=== PATIENT | female | born 1960 | race Caucasian/White ===

== ENCOUNTER 2016-03-28 09:34 | Observation (INO) | payer OTHER ==
[~2016-03-28] VITALS: Ht 165.1 cm; Wt 77.1 kg
[~2016-03-28 09:34] MED LIST: ALDACTONE50 MG PO; AMOXICILLIN500 M1 PO; ASPIRIN CHILDRE81 MG PO; ASPIRIN EC325 MG PO; ATORVASTATIN CA80 MG PO; AZOR 5 MG-40 MG1 TAB PO; HEPARIN 2525000 UNI1 IV; LOPRESSOR50 MG PO; METOPROLOL SUCC50 M1 PO; NORVASC 5MG TAB5 MG PO; PLAVIX 75MG TAB75 MG PO; PYRIDIUM200 MG PO; VICODIN5-300 PO
--- NOTE | 2016-03-28 09:57 | ED NEURO DEFICIT/STROKE ---
History of Present Illness General Chief Complaint: General Adult Stated Complaint: BLURRY VISION\\LUA Source: patient, old records Exam Limitations: ANXIETY Vital Signs & Intake/Output Vital Signs & Intake/Output Vital Signs Date Time Temp Pulse Resp B/P Pulse O2 O2 Flow FiO2 Ox Delivery Rate 03/28 1644 66 110/64 03/28 1503 98.2 66 16 110/64 98 Room Air 03/28 1220 64 16 135/73 97 03/28 1024 68 20 146/74 99 Nasal 2.0L Cannula 03/28 0944 99 Nasal 2.0L Cannula 03/28 0943 82 162/82 03/28 0936 98.3 80 18 159/78 99 Allergies Coded Allergies: iodine (Severe, ANAPHYLAXIS 03/28/16) shellfish derived (Intermediate, ? D/T IODINE ALLERGY 03/28/16) Uncoded Allergies: OPIATES (Severe, SEVERE ABD PAIN 03/28/16) Reconcile Medications AMLODIPINE BES/OLMESARTAN MED (Sahil 5-40 MG Tablet) 1 TAB TAB 1 TAB PO DAILY HEART (Reported) Aspirin (Children's Aspirin) 81 MG CTB 1 TAB PO DAILY HEART HEALTH (Reported) Metoprolol Succinate (Metoprolol Succinate XL) [address] 1 TAB PO DAILY HEART (Reported) Rosuvastatin Calcium (Crestor) 10 MG TABLET 1 TAB PO DAILY CHOLESTEROL ( Reported) Triage Note: PATIENT WAS WORKING. NOTED ISSUES WITH FORMING WORDS. CONTACTED PMD AND TOLD TO TAKE BP WHICH WAS HIGH. BROUGHT TO ED Triage Nurses Notes Reviewed? yes HPI: Patient presents for evaluation of blurred vision and trouble concentrating that began abruptly at work at about 6 AM this morning. 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 She contacted her education sales consultant Dr. Nino I was asked to be evaluated in the emergency department. Patient states that she did have a prior episode secondary to a TIA (patient was somewhat unclear on exactly what her diagnosis was at that time). In addition she states she feels a slight ache over the right methodist that began at the same time as her other symptoms. She denies any associated fever or cold symptoms or paresthesias. She states she is experiencing mild heart palpitations. She states "I'M OFF". Given her prior diagnosis of a TIA the patient takes a nightly aspirin and confirms she took it last night. Past History Travel History Traveled to [place] past 21 day No Medical History Any Pertinent Medical History? 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 No Review of Systems Review of Systems Constitutional: Reports: no symptoms. EENTM: Reports: no symptoms. Respiratory: Reports: no symptoms. Cardiovascular: Reports: no symptoms. GI: Reports: no symptoms. Genitourinary: Reports: no symptoms. Musculoskeletal: Reports: no symptoms. Skin: Reports: no symptoms. Neurological/Psychological: Reports: see HPI. Hematologic/Endocrine: Reports: no symptoms. Immunologic/Allergic: Reports: no symptoms. All Other Systems: Reviewed and Negative Physical Exam Physical Exam General Appearance: SEE BELOW Cranial Nerves: SEE BELOW Comments: Gen.: Well-nourished, well-developed, no acute respiratory distress. Head: Normocephalic, atraumatic. Eyes: Normal inspection bilaterally, PERRLA, EOMI Ears: Normal inspection bilaterally Nose: Normal inspection Face: Sensation intact to light touch Throat/mouth : Moist mucosa Neck: Supple, full range of motion, no goiter, equal carotid pulses, no carotid bruits Heart: Regular rate and rhythm, no murmurs rubs or gallops Lungs: Clear to auscultation bilaterally with normal air entry Chest: Nontender Back: Normal range of motion Abdomen: Soft, nontender, nondistended, normal bowel sounds Extremities: Normal range of motion grossly, equal radial pulses, no cyanosis clubbing or edema Neurologic: Cranial nerves 2 through 12 intact, speech is clear, no dysmetria of upper or lower extremities, no apparent aphasia Skin: warm and dry Psychiatric: Calm, cooperative, no apparent delusions or hallucinations Core Measures CVA/TIA Diagnosis: Yes NIH Stroke Scale: Total 0 Severe Sepsis Present: No Septic Shock Present: No Bedside Dysphagia Screen Bedside Swallow Eval Done: Yes Result of Evaluation: Pass Progress Differential Diagnosis: tia VERSUS STROKE Plan of Care: Orders Procedure Date/time Status Heart Healthy Diet 03/28 D Active TROPONIN LEVEL 03/28 2200 Active EKG 03/28 2200 Active TROPONIN LEVEL 03/28 1600 Complete EKG 03/28 1600 Active WESTERGREN SED RATE 03/28 1511 Active PHYSICIAN CONSULT 03/28 1420 Active ECHOCARDIOGRAM 03/28 1419 Active Add-on Test (ER Only) 03/28 1418 Active Occupational Tx Eval & Treat 03/28 1418 Active SWALLOW EVALUATION 03/28 1400 Active TRC EVALUATION (GEN) 03/28 1400 Active OXYGEN SETUP (GEN) 03/28 1400 Active PT Evaluate & Treat 03/28 1400 Active Pathway - chart 03/28 1400 Active House Staff 03/28 1400 Active Patient Data 03/28 1400 Active Code Status 03/28 1400 Active Add-on Test (ER Only) 03/28 1342 Active Add-on Test (ER Only) 03/28 1333 Active Patient Data 03/28 1313 Active Add-on Test (ER Only) 03/28 1259 Active Misc Message 03/28 1258 Active ED Holding Orders 03/28 1258 Active Vital Signs 03/28 1258 Active Code Status 03/[address] in observation 03/28 1249 Active NIH Stroke Scale 03/28 1220 Active Intake & Output 03/28 1220 Active THYROID STIMULATING HORMONE 03/28 1011 Complete TROPONIN LEVEL 03/28 1011 Complete TOTAL TRIODOTHYROXINE 03/28 1011 Complete THYROXINE 03/28 1011 Complete LIPID PANEL 03/28 1011 Complete FREE T4 03/28 1011 Complete DIRECT BILIRUBIN 03/28 1011 Complete C-REACTIVE PROTEIN 03/28 1011 Complete PARTIAL THROMBOPLASTIN TIME 03/28 0954 Complete PROTHROMBIN TIME 03/28 0954 Complete GLYCOSYLATED HGB 03/28 0954 Active COMPREHENSIVE METABOLIC PANEL 03/28 0954 Complete CBC WITHOUT DIFFERENTIAL 03/28 0954 Complete EKG 03/28 0954 Active VTE Mechanical Prophylaxis 03/28 UNK Active Vital Signs 03/28 UNK Active MISTAKE 03/28 UNK Active Telemetry/Financial Associate 03/28 UNK Active Intake & Output 03/28 UNK Active Current Medications Sig/Reggie Start time Last Medication Dose Stop Time Status Admin Amlodipine Besylate 5 MG DAILY 03/29 1000 AC (Norvasc) Enoxaparin Sodium 40 MG DAILY 03/29 1000 AC (Lovenox) Losartan Potassium 100 MG DAILY 03/29 1000 AC (Cozaar) Rosuvastatin Calcium 10 MG DAILY@1700 03/28 1700 AC (Crestor) Non-Formulary 0 SEE ADMIN CRITERIA 03/28 1445 CAN Medication (NON FORMULARY) Laboratory Tests 03/28/16 1620: Troponin I < 0.01, ESR Westergren Pending 03/28/16 1011: Anion Gap 15, Estimated GFR > 60, BUN/Creatinine Ratio 23.8, Glucose 100 H, Calcium 9.7, Total Bilirubin 1.0, Direct Bilirubin 0.4, AST 28, ALT 48, Alkaline Phosphatase 65, Troponin I < 0.01, C-Reactive Prot, Quant < 0.5, Total Protein 7.6, Albumin 4.9, Globulin 2.7, Albumin/Globulin Ratio 1.8, Triglycerides 113, Cholesterol 150, LDL Cholesterol, Calc 69, HDL Cholesterol 59, Cholesterol/HDL Ratio 2.5, TSH 1.390, Free T4 0.86, Thyroxine (T4) 7.3, Total T3 1.42, PT 10.1, INR 0.96, APTT 30, CBC w Diff NO MAN DIFF REQ, RBC 4.19 L, MCV 90.3, MCH 30.3, RDW 14.4, MPV 7.5, Gran % 52.4, Lymphocytes % 38.4, Monocytes % 7.1, Eosinophils % 1.8, Basophils % 0.3, Absolute Granulocytes 2.9, Absolute Lymphocytes 2.2, Absolute Monocytes 0.4, Absolute Eosinophils 0.1, Absolute Basophils 0, PUBS MCHC 33.5 03/28/16 0954: Hemoglobin A1c Pending Diagnostic Imaging: Discussed w/RAD: CT Scan, MRI. Radiology Impression: PATIENT: BLAKE GILLESPIE PRESENT AGE: 55 PATIENT ACCOUNT NO: [id number] : 56 LOCATION: [facility] ORDERING PHYSICIAN: JAUN MEDEIROS MD SERVICE DATE: 03/28/16 EXAM TYPE: CAT - CT HEAD WO IV CONTRAST EXAMINATION: CT HEAD WITHOUT CONTRAST CLINICAL INFORMATION: Blurred vision and trouble concentrating COMPARISON: 02/02/2014 TECHNIQUE: Contiguous axial imaging was performed from the skull base to vertex without intravenous administration of contrast. DLP: 600.71 mGy-cm. FINDINGS: There is no evidence of acute intracranial hemorrhage or territorial infarction. No abnormal mass effect or midline shift is seen. Trejo to white matter differentiation is well preserved. No extra-axial fluid collections are identified. The ventricles are normal in size. Chronic hypoattenuating foci in the bilateral basal ganglia may reflect chronic lacunar infarcts or prominent perivascular spaces. The osseous structures and soft tissues are normal. The mastoid air cells and visualized portions of the paranasal sinuses are well aerated. IMPRESSION: No acute intracranial pathology. DICTATED BY: ISABEL QUIÑONEZ MD DATE/TIME DICTATED:03/28/161016 MANAGER DATABASE:ALEXSANDRA DATE/TIME TRANSCRIBED:03/28/161016 CONFIDENTIAL, DO NOT COPY WITHOUT APPROPRIATE AUTHORIZATION. <Electronically signed in Other Vendor System> SIGNED BY: ISABEL QUIÑONEZ MD 03/28/16 1032, PATIENT: BLAKE GILLESPIE PRESENT AGE: 55 PATIENT ACCOUNT NO: [id number] : 56 LOCATION: [facility] ORDERING PHYSICIAN: JAUN MEDEIROS MD SERVICE DATE: 03/28/16 EXAM TYPE: MRI - MRI-HEAD W & W/O TAQUERIA EXAMINATION: MR BRAIN WITHOUT AND WITH CONTRAST CLINICAL INFORMATION: Blurred vision and trouble concentrating. Assess for CVA. COMPARISON: CT scan of the head obtained earlier 03/28/2016. TECHNIQUE: MRI of the brain was obtained using routine sequences before and after the intravenous administration of 16 mL of OptiMARK. FINDINGS: No diffusion abnormalities are identified to suggest an acute or subacute infarct. No mass effect or midline shift is seen. The ventricles are normal in size. There are scattered areas of increased T2 and FLAIR signal in the periventricular and subcortical white matter as well as within the right basal ganglia. No extra-axial fluid collections are seen. The brainstem and cerebellum are normal. On postcontrast imaging, there is no abnormal parenchymal or leptomeningeal enhancement. No pathologic magnetic susceptibility artifact is identified on the gradient refocused acquisition. The craniovertebral junction, marrow signal, and midline structures are normal. The major intracranial flow-voids at the level of the [place] of [place] are preserved. The dural venous sinus flow-voids are maintained. The mastoid air cells are well-aerated. There is a proteinaceous cyst in the anterior right maxillary sinus. IMPRESSION: 1. There are no acute bleeds or infarcts. 2. There are no masses or areas of abnormal enhancement. 3. There are scattered foci of increased T2 and FLAIR signal in the white matter, which are nonspecific and may be consistent with sequelae of migraine, vasculitis or mild/early microvascular ischemic change. DICTATED BY: BRENDA ODOM MD DATE/TIME DICTATED:03/28/161216 MANAGER DATABASE:ALEXSANDRA DATE/TIME TRANSCRIBED:03/28/161216 CONFIDENTIAL, DO NOT COPY WITHOUT APPROPRIATE AUTHORIZATION. <Electronically signed in Other Vendor System> SIGNED BY: BRENDA ODOM MD 03/28/16 1227 Initial ED EKG: NSR, rate (71), no ST T wave changes Prior EKG: unchanged Comments: 03/28/2016 10:01:25 AM patient's case discussed with Dr. De Jesus who feels that the patient should not receive TPA based on history and physical examination. He recommends an MRI scan. He will consult this morning. Departure Departure Disposition: STILL A PATIENT Condition: Stable Clinical Impression Primary Impression: TIA (transient ischemic attack) Qualifiers: Transient cerebral ischemia type: unspecified Qualified Code: G45.9 - Transient cerebral ischemic attack, unspecified Referrals: LUCI ALONSO,JACK Multani (PCP/Family) Departure Forms: Customer Survey General Discharge Information
--- NOTE | 2016-03-28 10:12 | NUR ---
RETURN FROM CT
--- NOTE | 2016-03-28 10:20 | NUR ---
PATIENT WAS WORKING. NOTED ISSUES WITH FORMING WORDS. CONTACTED PMD AND TOLD TO TAKE BP WHICH WAS HIGH. BROUGHT TO ED
--- NOTE | 2016-03-28 10:22 | NUR ---
FIRST ATTEMPT IV ACCESS UNSUCCESSFUL RIGHT A/C DUE TO PATIENT MOVEMENT
[2016-03-28 10:27] LABS: ABSOLUTE BASOPHIL COUNT 0 /CUMM (0.0-0.2); ABSOLUTE EOSINOPHIL COUNT 0.1 /CUMM (0.0-0.7); ABSOLUTE GRANULOCYTE CT 2.9 /CUMM (1.4-6.5); ABSOLUTE LYMPH COUNT 2.2 /CUMM (1.2-3.4); ABSOLUTE MONOCYTE COUNT 0.4 /CUMM (0.10-0.60); BASOPHIL % 0.3 % (0.0-2.0); EOSINOPHIL % 1.8 % (0-5); GRANULOCYTE % 52.4 % (42.2-75.2); HEMATOCRIT 37.8 % (37-47); MEAN CORPUSCULAR HGB 30.3 PG (27.0-31.0); MEAN CORPUSCULAR HGB CONC 33.5 G/DL (33.0-37.0); MEAN CORPUSCULAR VOLUME 90.3 FL (81.0-99.0); MEAN PLATELET VOLUME 7.5 FL (7.4-10.4); PLATELET COUNT 285 /CUMM (130-400); RBC DISTRIBUTION WIDTH 14.4 % (11.5-14.5); RED BLOOD CELL CT 4.19 /CUMM (4.20-5.40); WHITE BLOOD CELL COUNT 5.6 /CUMM (4.8-10.8)
--- NOTE | 2016-03-28 10:31 | NUR ---
PT REMAINS AWAKE, ALERT, ORIENTED, ANSWERING QUESTIONS APPROPRIATELY, SPEECH CLEAR. PT STATING "IT WAS WHEN I WAS TRYING TO GIVE DIRECTIONS, IT WAS ALL BACKWARDS". DENIES HEADACHE, OR CHEST PAIN OR SOB .
--- NOTE | 2016-03-28 10:32 | CT SCAN REPORT ---
EXAMINATION: CT HEAD WITHOUT CONTRAST CLINICAL INFORMATION: Blurred vision and trouble concentrating COMPARISON: 02/02/2014 TECHNIQUE: Contiguous axial imaging was performed from the skull base to vertex without intravenous administration of contrast. DLP: 600.71 mGy-cm. FINDINGS: There is no evidence of acute intracranial hemorrhage or territorial infarction. No abnormal mass effect or midline shift is seen. Trejo to white matter differentiation is well preserved. No extra-axial fluid collections are identified. The ventricles are normal in size. Chronic hypoattenuating foci in the bilateral basal ganglia may reflect chronic lacunar infarcts or prominent perivascular spaces. The osseous structures and soft tissues are normal. The mastoid air cells and visualized portions of the paranasal sinuses are well aerated. IMPRESSION: No acute intracranial pathology.
[2016-03-28 10:45] LABS: PT 10.1 SEC (9.4-12.5); PTT 30 SEC (25-37)
--- NOTE | 2016-03-28 11:28 | NUR ---
ASSUMED CARE FOR PT. PT AWAKE, ALERT AND ORIENTEDX3. SPEECH CLEAR. SENT FOR MRI
--- NOTE | 2016-03-28 12:19 | NUR ---
RETURNED FROM MRI. ON MONITOR IN SINUS RHYTHM
--- NOTE | 2016-03-28 12:27 | MRI REPORT ---
EXAMINATION: MR BRAIN WITHOUT AND WITH CONTRAST CLINICAL INFORMATION: Blurred vision and trouble concentrating. Assess for CVA. COMPARISON: CT scan of the head obtained earlier 03/28/2016. TECHNIQUE: MRI of the brain was obtained using routine sequences before and after the intravenous administration of 16 mL of OptiMARK. FINDINGS: No diffusion abnormalities are identified to suggest an acute or subacute infarct. No mass effect or midline shift is seen. The ventricles are normal in size. There are scattered areas of increased T2 and FLAIR signal in the periventricular and subcortical white matter as well as within the right basal ganglia. No extra-axial fluid collections are seen. The brainstem and cerebellum are normal. On postcontrast imaging, there is no abnormal parenchymal or leptomeningeal enhancement. No pathologic magnetic susceptibility artifact is identified on the gradient refocused acquisition. The craniovertebral junction, marrow signal, and midline structures are normal. The major intracranial flow-voids at the level of the [place] are preserved. The dural venous sinus flow-voids are maintained. The mastoid air cells are well-aerated. There is a proteinaceous cyst in the anterior right maxillary sinus. IMPRESSION: 1. There are no acute bleeds or infarcts. 2. There are no masses or areas of abnormal enhancement. 3. There are scattered foci of increased T2 and FLAIR signal in the white matter, which are nonspecific and may be consistent with sequelae of migraine, vasculitis or mild/early microvascular ischemic change.
--- NOTE | 2016-03-28 13:07 | PN- Att Addend ---
Attending Addendum Attending Brief Note Patient presents for evaluation of blurred vision and trouble concentrating that began abruptly at work at about 6 AM this morning. 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 Nino I was asked to be evaluated in the emergency department. Patient states that she did have a prior episode similar (patient was somewhat unclear on exactly what her diagnosis was at that time). In addition she states she feels a slight ache over the right congregational that began at the same time as her other symptoms. She denies any associated fever or cold symptoms or paresthesias. She states she is experiencing mild heart palpitations. She states "I'M OFF". Now much improved in the ED ROS no chest pain, no nausea vomiting or diarrhea Past History Allergies Coded Allergies: iodine (Severe, ANAPHYLAXIS 03/28/16) shellfish derived (Intermediate, ? D/T IODINE ALLERGY 03/28/16) Uncoded Allergies: OPIATES (Severe, SEVERE ABD PAIN 03/28/16) Reconcile Medications AMLODIPINE BES/OLMESARTAN MED (Sahil 5-40 MG Tablet) 1 TAB TAB 1 TAB PO DAILY HEART (Reported) Aspirin (Children's Aspirin) 81 MG CTB 1 TAB PO DAILY HEART HEALTH (Reported) Metoprolol Succinate (Metoprolol Succinate XL) [address] 1 TAB PO DAILY HEART (Reported) Triage Note: PATIENT WAS WORKING. NOTED ISSUES WITH FORMING WORDS. CONTACTED PMD AND TOLD TO TAKE BP WHICH WAS HIGH. 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 Other Medical Hx: porphyria History of MRSA: No History of VRE: No History of CDIFF: No Surgical History Surgical History: hysterectomy, cardiac catheterization Psychosocial History Who do you live with Spouse Services at Home None What is your primary language Eritrean Family History Family History, If Any: MOTHER FH: HTN (hypertension) FH: myocardial infarction FATHER Valvular heart disease AUNT FHx: esophageal cancer Exam JOSE EOmi Neck supple no jvd Chest clear Cvs no murmurs No abd pain exam wnl No sig edema Neuro no sig defecit Vital Signs Date Time Temp Pulse Resp B/P Pulse O2 O2 Flow FiO2 Ox Delivery Rate 03/28 1220 64 16 135/73 97 03/28 1024 68 20 146/74 99 Nasal 2.0L Cannula 03/28 943 99 Nasal 2.0L Cannula 03/28 0843 82 162/82 03/28 0836 98.3 80 18 159/78 99 Laboratory Tests 03/28/16 1011: Anion Gap 15, Estimated GFR > 60, BUN/Creatinine Ratio 23.8, Glucose 100 H, Calcium 9.7, Total Bilirubin 1.0, AST 28, ALT 48, Alkaline Phosphatase 65, Total Protein 7.6, Albumin 4.9, Globulin 2.7, Albumin/Globulin Ratio 1.8, PT 10.1, INR 0.96, APTT 30, CBC w Diff NO MAN DIFF REQ, RBC 4.19 L, MCV 90.3, MCH 30.3, RDW 14.4, MPV 7.5, Gran % 52.4, Lymphocytes % 38.4, Monocytes % 7.1, Eosinophils % 1.8, Basophils % 0.3, Absolute Granulocytes 2.9, Absolute Lymphocytes 2.2, Absolute Monocytes 0.4, Absolute Eosinophils 0.1, Absolute Basophils 0, PUBS MCHC 33.5 Orders Procedure Date/time Status Heart Healthy Diet 03/28 D Active Add-on Test (ER Only) 03/28 1259 Active Misc Message 03/28 1258 Active ED Holding Orders 03/28 1258 Active Vital Signs 03/28 1258 Active Code Status 03/[address] in observation 03/28 1249 Active PARTIAL THROMBOPLASTIN TIME 03/28 0954 Complete PROTHROMBIN TIME 03/28 953 Complete COMPREHENSIVE METABOLIC PANEL 03/28 953 Complete CBC WITHOUT DIFFERENTIAL 03/28 953 Complete EKG 03/28 953 Active MRI WITH AND WITHOUT TAQUERIA 03/28/16 IMPRESSION: 1. There are no acute bleeds or infarcts. 2. There are no masses or areas of abnormal enhancement. 3. There are scattered foci of increased T2 and FLAIR signal in the white matter, which are nonspecific and may be consistent with sequelae of migraine, vasculitis or mild/early microvascular ischemic change. DICTATED BY: BRENDA ODOM MD DATE/TIME DICTATED:03/28/16 / 1217 IMPRESSION Pt with history of non obstructive cad, htn, hld, hisotry of previous sanjana, previous history of du ulcer, previous intermittent porphyria now with * Episodes of brief bilateral blurry vision with mild disorientation with slurring of words with spontaneous resolution. 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
--- NOTE | 2016-03-28 13:14 | History & Physical ---
TERRY BHAT 03/28/16 1314: General Information and HPI MD Statement: I have seen and personally examined BLAKE GILLESPIE and documented this H&P. The patient is a 55 year old F who presented with a patient stated chief complaint of blurred vision in the morning. Source of Information: patient, family Exam Limitations: no limitations History of Present Illness: This is a 55-year-old female with past medical history significant for nonobstructive coronary artery disease, hypertension, hyperlipidemia, anxiety, prior history of TIA, NSTEMI status post cardiac catheterization, peptic ulcer disease, intermittent porphyria, acute cholecystitis status post laparoscopic cholecystectomy presented to the [facility] emergency department with chief complaint of blurry vision and slurred speech in the morning. According to the patient, she was completely fine until 6 AM this morning. Around 6:00 am patient started having blurred vision, bilateral which lasted briefly. At the same time she noticed trouble concentrating at her work and she has to repeat same thing. She noticed slurryness in her speech which resolved spontaneously. She called her cell biology scientist Dr. Kline who told her to check the blood pressure. Blood pressure was 180/100 and she was advised to go to the emergency department. She denied any loss of consciousness, headache, syncopal episode, dizziness or lightheadedness. She denied any weakness, sensory changes, gait changes, swallowing changes. No focal neurologic deficits. No seizures. Of note patient has prior history of TIA. She did complain racing of heart in the morning. She denied any chest pain, shortness of breath, cough, hemoptysis, fever or chills, sick contacts or travel history. She denied any nausea, vomiting, abdominal pain, change in bladder or bowel habits, peripheral leg swelling. She denied smoking, alcohol abuse, illicit drug intake. Patient was admitted to the [facility] in 2013 for chest pain. She was found to have elevated troponins. Treated for NSTEMI and cardiac catheterization was done which showed nonobstructive coronary artery disease. Echo in 2013 showed ejection fraction greater than 55%. Negative stress echo for ischemia in november 2015. Jack Verma MD primary care doctor. Mj Kline MD cell biology scientist. Allergies/Medications Allergies: Coded Allergies: iodine (Severe, ANAPHYLAXIS 03/28/16) shellfish derived (Intermediate, ? D/T IODINE ALLERGY 03/28/16) Uncoded Allergies: OPIATES (Severe, SEVERE ABD PAIN 03/28/16) Home Med list AMLODIPINE BES/OLMESARTAN MED (Sahil 5-40 MG Tablet) 1 TAB TAB 1 TAB PO DAILY HEART (Reported) Aspirin (Children's Aspirin) 81 MG CTB 1 TAB PO DAILY HEART HEALTH (Reported) Metoprolol Succinate (Metoprolol Succinate XL) [address] 1 TAB PO DAILY HEART (Reported) Rosuvastatin Calcium (Crestor) 10 MG TABLET 1 TAB PO DAILY CHOLESTEROL ( Reported) Compliance With Home Meds: GOOD Past History Travel History Traveled to [place] past 21 day No Medical History Neurological: NONE EENT: NONE Cardiovascular: hypertension, myocardial infarction Respiratory: NONE Gastrointestinal: GERD, peptic ulcer disease Hepatic: NONE Renal: NONE Musculoskeletal: NONE Psychiatric: NONE Endocrine: NONE Blood Disorders: NONE Cancer(s): NONE RE EXAMINER/Reproductive: NONE Other Medical Hx: porphyria History of MRSA: No History of VRE: No History of CDIFF: No Surgical History Surgical History: hysterectomy, cardiac catheterization Past Family/Social History Family History Relations & Conditions if any MOTHER FH: HTN (hypertension) FH: myocardial infarction FATHER Valvular heart disease AUNT FHx: esophageal cancer Psychosocial History Services at Home: None Smoking Status: Never Smoked ETOH Use: denies use Illicit Drug Use: denies illicit drug use Review of Systems Review of Systems Constitutional: Denies: chills, diaphoresis, fever, malaise, weakness, unexplained weight loss. EENTM: Reports: blurred vision. Denies: double vision, eye pain, eye drainage, hearing changes, nasal pain, throat pain. Cardiovascular: Denies: chest pain, edema, orthopena, palpitations, peripheral edema, syncope. Respiratory: Denies: cough, hemoptysis, orthopnea, short of breath, sputum production, stridor, wheezing. GI: Denies: abdominal pain, bloating, constipation, nausea, bloody stool, changes in stool, vomiting. Genitourinary: Denies: dysuria, frequency, hematuria, hesitation. Musculoskeletal: Denies: back pain, gout, joint pain. Skin: Denies: rash. Neurological/Psychological: Denies: anxiety, cognitive dysfunction, confusion, depressed, dementia, emotional problems, headache, numbness, tingling, tremors, weakness. Exam & Diagnostic Data Last 24 Hrs of Vital Signs/I&O Vital Signs Date Time Temp Pulse Resp B/P Pulse O2 O2 Flow FiO2 Ox Delivery Rate 03/28 1220 64 16 135/73 97 03/28 1024 68 20 146/74 99 Nasal 2.0L Cannula 03/28 0944 99 Nasal 2.0L Cannula 03/28 0943 82 162/82 03/28 0936 98.3 80 18 159/78 99 Intake & Output 03/28 1600 03/28 0800 03/28 0000 Intake Total Output Total Balance Patient 77.111 kg Weight Physical Exam General Appearance Alert, Oriented X3, Cooperative, No Acute Distress Skin No Rashes, No Breakdown HEENT Atraumatic, Mucous Membr. moist/pink Neck Supple, No JVD Lymphatic Cervical nl Cardiovascular Regular Rate, Normal S1, Normal S2, No Murmurs Lungs Normal Air Movement Abdomen Normal Bowel Sounds, Soft, No Tenderness Neurological Normal Speech, Strength at 5/5 X4 Ext, Normal Tone, Sensation Intact, Cranial Nerves 3-12 NL, Reflexes 2+ Extremities No Clubbing, No Cyanosis, No Edema Vascular Normal Pulses Last 24 Hrs of Labs/Jhonatan: Laboratory Tests 03/28/16 1011: Anion Gap 15, Estimated GFR > 60, BUN/Creatinine Ratio 23.8, Glucose 100 H, Calcium 9.7, Total Bilirubin 1.0, AST 28, ALT 48, Alkaline Phosphatase 65, C- Reactive Prot, Quant Pending, Total Protein 7.6, Albumin 4.9, Globulin 2.7, Albumin/Globulin Ratio 1.8, PT 10.1, INR 0.96, APTT 30, CBC w Diff NO MAN DIFF REQ, RBC 4.19 L, MCV 90.3, MCH 30.3, RDW 14.4, MPV 7.5, Gran % 52.4, Lymphocytes % 38.4, Monocytes % 7.1, Eosinophils % 1.8, Basophils % 0.3, Absolute Granulocytes 2.9, Absolute Lymphocytes 2.2, Absolute Monocytes 0.4, Absolute Eosinophils 0.1, Absolute Basophils 0, PUBS MCHC 33.5 Diagnostic Data EKG Results sinus rhythm, no st- t chnages Other Results head ct - normal head mri- 1. There are no acute bleeds or infarcts. 2. There are no masses or areas of abnormal enhancement 3. There are scattered foci of increased T2 and FLAIR signal in the white matter, which are nonspecific and may be consistent with sequelae of migraine, vasculitis or mild/early microvascular ischemic change. Assessment/Plan Assessment: This is a 55-year-old female with past medical history significant for nonobstructive coronary artery disease, hypertension, hyperlipidemia, anxiety, prior history of TIA, NSTEMI status post cardiac catheterization, peptic ulcer disease, intermittent porphyria, acute cholecystitis status post laparoscopic cholecystectomy presented to the [facility] emergency department with chief complaint of blurry vision and slurred speech in the morning. Vitals on admission afebrile, heart rate 68, respiratory rate 20, blood pressure 146/74, saturating at 99% on 2 L oxygen. Pertinent labs on admission CBC normal BEP normal First set of troponins were negative. EKG normal sinus rhythm with no acute ST-T wave changes. Head CT was normal MRI head- 1. There are no acute bleeds or infarcts. 2. There are no masses or areas of abnormal enhancement 3. There are scattered foci of increased T2 and FLAIR signal in the white matter, which are nonspecific and may be consistent with sequelae of migraine, vasculitis or mild/early microvascular ischemic change. Problem list 1. TIA 2. Rule out ACS 3. Migraine versus vasculitis 4. Hypertension 5. Hyperlipidemia 6. Non-obstructive coronary artery disease TIA Patient presented with sudden onset of blurred vision and slurred speech in the morning - Which lasted for few hours. Blood pressure was running high at the same time and her cell biology scientist dr. kline advised her to go to the emergency room. Also reported racing of heart at the same time. She denied any focal neurologic deficits by the time she came to hospital. First set of EKG and troponins were negative Head CT was normal Brain MRI was normal except for scattered foci of increased T2 and FLAIR signal in the white matter, which are nonspecific and may be consistent with sequelae of migraine, vasculitis or mild/early microvascular ischemic change. * Admitted to telemetry floor for 24-hour observation * Monitor vitals every shift * Maintain oxygen saturation above 92% * Frequent neuro checks * nih stroke scale * Neurology was consulted. * Continue aspirin home dose 81 mg * First set of troponins and EKG were negative * Will follow up serial EKG and troponins * ABCD2 on admission-blood pressure greater than 140/90, speech disturbances, duration greater than 60 minutes-score of 4-moderate risk of subsequent stroke 4.1%. * Rule out ACS * Carotid Doppler ultrasound neck * Echocardiogram * Cardiology consult * Passed bedside swallow evaluation * PTOT * Speech therapy * Will check ESR and CRP-to rule out vasculitis * Patient needs outpatient workup for vasculitis. * Follow neurology recommendations Hypertension * amlodipine- OLMESARTAN daily for blood pressure * Metoprolol 50 mg by mouth daily for blood pressure * Continue home medications. Hyperlipidemia * Continue crestor Nonobstructive coronary artery disease Patient had non-STEMI in 2014. Status post catheterization-nonobstructive coronary artery disease. Follows Dr. Nguyễn cell biology scientist as an outpatient. * Echo in 2013 showed ejection fraction greater than 55% * Negative stress echo for ischemia in 2016 * Continue home dose of baby aspirin 81 mg * Barrel Cutter was consulted * Rule out acute coronary syndrome * First set of troponins and EKGs were negative * Serial troponins and EKGs. patient is full code DVT prophylaxis subcutaneous Lovenox Heart healthy diet As Ranked By This Provider Problem List: 1. TIA (transient ischemic attack) Qualifiers Transient cerebral ischemia type: unspecified Qualified Code: G45.9 - Transient cerebral ischemic attack, unspecified Core Measures/Miscellaneous Acute Coronary Syndrome ACS Diagnosis: No Cerebrovascular Accident CVA/TIA Diagnosis: Yes NIH Stroke Scale: Total 1 Date Last Known Well: 03/28/16 Time Last Known Well: 06 Neurological S/S of CVA: Slurred Speech Symptom Start Date: 03/28/16 Symptom Start Time: 0600 Bedside Swallow Eval Done: Yes Result of Evaluation: Pass Antithrombotic: Yes AFIB: No Aflutter: No Anticoagulant: No Evidence of Atherosclerosis: No LDL Assessed Within 24 Hours: Yes Currently on Statin: No Rehab Needs Assessed: Medical Eval for Rehab PT Consult Ordered: Yes Congestive Heart Failure CHF Diagnosis: No Venous Thromboembolism VTE Risk Factors: Age > 40, No Risk Factors VTE Prophylaxis Ordered Inpt: [facility]- [facility] prophylaxis d/t: No contraindications No VTE Pharm Prophylaxis d/t: No contraindications VTE Diagnosis: No VTE Type: NONE VTE Confirmed by (Test): NONE Severe Sepsis Severe Sepsis Present: No Septic Shock Septic Shock Present: No Miscellaneous Documentation Attending Case Discussed With: JACK VERMA MD Primary Care Physician: JACK VERMA MD Patient sees these Specialists cardiology Level of Patient Care: Telemetry DEANA CASTILLO 03/28/16 1450: Resident Review Statement Resident Statement: examined this patient, discussed with property management intern, agreed with property management intern, discussed with family, reviewed images Other Findings: This is a 55-year-old lady with past medical history significant for porphyria, hypertension, peptic ulcer disease, hyperlipidemia, coronary artery disease, NSTEMI,cholecystitis status post laparoscopic cholecystectomy who presented to the hospital for blurred vision, trouble concentrating and finding words this morning. According to the patient, this morning around 7 AM, she experienced trouble finding words and concentrating also had blurred vision, symptoms lasted until 9 AM. 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 She contacted her cell biology scientist Dr. Nino was sent to the ED for further evaluation. Please see above for further details. Vital signs on admission: Temperature 98.3, pulse rate 80, respiratory rate 18, blood pressure 159/78, oxygen saturation 99% on room air. Physical exam at the time of admission: AAO 3, no acute distress. Skin normal, no breakdown, normal capillary refill. HEENT: PERRLA, EOMI, normal funduscopy, Normocephalic, atraumatic, no pain on palpation on temporal region, normal pharynx, neck normal neck range of motion, supple, no JVD, no LAD, cardiovascular, RRR, no murmur. CTA BL, abdomen: Normal bowel sounds, soft, not distended, nontender. Neurology exam, normal speech, normal tone, strength 5 over 5 in 4 extremities, sensation intact, cranial nerves 3-12 intact, [id number] intact, no dysdiadochokinesia, reflexes 2+ and symmetric. No lower extremity edema, no calf tenderness, no cyanosis, no clubbing, pulses normal and symmetrical. Patient passed bedside swallow evaluation test. Head CT negative for any intracranial pathology. MRI of head negative for any acute bleeds or infarcts, no masses or areas of abnormal enhancement, nonspecific findings consistent with possible vasculitis versus migraine sequela versus mild/early microvascular ischemic change. 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 * Formal swallow eval outpatient test * Speech/OT/PT * Neurology consult * Cardiology consult #MRI suspicious of vasculitis: * ESR, CRP * Further workup could be done as outpatient #DVT prophylaxis: * Subcutaneous Lovenox #Patient is full code
[2016-03-28] MEDS ORDERED: CRESTOR10 M1 PO (13:35)
--- NOTE | 2016-03-28 14:20 | NUR ---
LAB CALLED ESR CAN NOT BE A ADD ON, HAS TO HAVE IT'S OWN LAV TOP TUBE.
--- NOTE | 2016-03-28 14:24 | NUR ---
SENT FOR ULTRASOUND
--- NOTE | 2016-03-28 14:27 | PN- Student ---
Subjective Subjective: HPI: Patient is a 55 year old female with past history of TIA, HTN, HDL, nonobstructive CAD,intermittent porphyria, and PUD presenting to the ED for blurry vision and speech impairment. Patient reports that she started experiencing blurry vision at 6 AM this morning along with trouble speaking. Patient reports that she was able to think clearly but was not able to speak the words she wanted to say and kept repeating herself. Patient reports experiencing this for three hours until 9 AM when she called her community outreach worker Dr. Gregory, who advised her to come into the ED after asking the patient to check her blood pressure which was elevated. Patient also reports that she had a slight headache over her right sikh during this time, some nausea, and slight palpitations. Patient denies any chest pain, weakness, numbness or tingling. PMH: TIA, HTN, HDL, nonobstructive CAD,intermittent porphyria, and PUD Meds: Patient is currently taking Amlodipine/Olmesartan 5-40mg qd, Metprolol Succinate 50mg qd, Asprin 81mg qd, and Crestor 10mg. Allergies: Patient is allergic to opiates (severe constipation), shellfish, and iodine (anaphylaxis) Family Hx: Mother: HTN and ?? Father: Valvular heart disease Social Hx: Patient is a nonsmoker, and does not drink alcohol Objective Objective: Patient examined at bedside, appearing comfortable in no acute distress. Patient 's BP was 135/73, RR 16, pulse 64, pulse ox 97 on room air. ROS: Consitutional: Patient denied malaise, fever HEENT: Patient denied changes in vision, headache HEART: S1/S2 normal RRR Lungs: Lungfields clear bilaterally, no ronchi or wheezing Neuro: Cranial nerves intact, no weakness, no numbness or tingling, cerebellar functions intact Extremeties: Bilateral dorsalis pedis, negative babinski, no edema noted Results Results: Laboratory Tests 03/28/16 0954: Hemoglobin A1c Pending Laboratory Tests 03/28/16 1011: Anion Gap 15, Estimated GFR > 60, BUN/Creatinine Ratio 23.8, Glucose 100 H, Calcium 9.7, Total Bilirubin 1.0, Direct Bilirubin 0.4, AST 28, ALT 48, Alkaline Phosphatase 65, Troponin I < 0.01, C-Reactive Prot, Quant < 0.5, Total Protein 7.6, Albumin 4.9, Globulin 2.7, Albumin/Globulin Ratio 1.8, Triglycerides 113, Cholesterol 150, LDL Cholesterol, Calc 69, HDL Cholesterol 59, Cholesterol/HDL Ratio 2.5, TSH 1.390, Free T4 0.86, Thyroxine (T4) 7.3, Total T3 1.42, PT 10.1, INR 0.96, APTT 30, CBC w Diff NO MAN DIFF REQ, RBC 4.19 L, MCV 90.3, MCH 30.3, RDW 14.4, MPV 7.5, Gran % 52.4, Lymphocytes % 38.4, Monocytes % 7.1, Eosinophils % 1.8, Basophils % 0.3, Absolute Granulocytes 2.9, Absolute Lymphocytes 2.2, Absolute Monocytes 0.4, Absolute Eosinophils 0.1, Absolute Basophils 0, PUBS MCHC 33.5 03/28/16 0954: Hemoglobin A1c Pending Vital Signs Date Time Temp Pulse Resp B/P Pulse O2 O2 Flow FiO2 Ox Delivery Rate 03/28 1220 64 16 135/73 97 03/28 1024 68 20 146/74 99 Nasal 2.0L Cannula 03/28 0944 99 Nasal 2.0L Cannula 03/28 0943 82 162/82 03/28 0936 98.3 80 18 159/78 99 Patient examined at bedside, appearing comfortable in no acute distress. Patient 's BP was 135/73, RR 16, pulse 64, pulse ox 97 on room air. Assessment/Plan Assessment: Patient is a 55 year old female with PMH of TIA presenting to the ED for impaired speech and blurry vision. Patient's EKG was normal, no ST segment changes noted. Patient's tropnins were negative. Head CT was normal Brain MRI was normal except for scattered foci of intreated T2 and FLAIR signal in the which matter which may be consistent with vasculitis or early microvascular ischemic changes. Plan: We will admit the patient to telemetry to rule out acute intracranial pathology, we did an MRI and CT of the head which ruled our hemorrage but revelaed a possible vasculitis. We ordered ESR and C-RP. Patient will be followed in outpatient for further vasculitis work up. 1. TIA - Head CT normal - MRI showed no hemmorage - Pt started on Enoxaparin 40 mg - Continue to monitor vitals during shift changes 2. Rule out ACS - First EKG is normal, will repeat EKG to monitor ST segment changes - Repeat troponins at 4PM and 10PM 3. HTN - continue home meds of metoprolol- succinate and amlodipine/olmesartan 4. HLD - continue crestor 10mg Resident Review Statement Resident Statement: examined this patient, discussed with legal intern
--- NOTE | 2016-03-28 15:06 | NUR ---
PT RETURNED FROM ULTRASOUND. COMPLAINING OF HUNGER. RESIDENT PAGED TO ASK IF PT CAN EAT SINCE SHE HAS NO NEURO DEFICITS. AWAITING CALL BACK.
--- NOTE | 2016-03-28 15:20 | ULTRASOUND REPORT ---
EXAMINATION: DUPLEX BILATERAL CAROTID ULTRASOUND CLINICAL INFORMATION: TIA. Aphasia. Blurred vision. COMPARISON: None. TECHNIQUE: Real-time ultrasound and Doppler techniques (integrating B-mode 2D vascular images, Doppler spectral analysis and color flow Doppler imaging) were utilized to interrogate the extracranial carotid and vertebral arteries bilaterally. The degree of stenosis determined by criteria similar to NASCET. FINDINGS: Right side: 1. Mild amount of plaque is seen in the ECA/ICA region. 2. The common carotid artery velocity is 80 cm/s. 3. The internal carotid artery velocities are 65 cm/s systolic and 22 cm/s diastolic. 4. The external carotid artery velocity is 96 cm/s. Left side: 1. Mild amount of plaque is seen in the ECA/ICA region. 2. The common carotid artery velocity is 86 cm/s. 3. The internal carotid artery velocities are 67 cm/s systolic and 22 cm/s diastolic. 4. The external carotid artery velocity is 103 cm/s. ADDITIONAL FINDINGS: 1. The vertebral arteries show antegrade flow. IMPRESSION: 1. RIGHT: Minimal, nonhemodynamically significant stenosis of the proximal right internal carotid artery corresponding to a 0-49% stenosis by velocity criteria. 2. LEFT: Minimal, nonhemodynamically significant stenosis of the proximal left internal carotid artery corresponding to a 0-49% stenosis by velocity criteria. 3. No evidence for hemodynamically significant stenosis in the external carotid arteries.
--- NOTE | 2016-03-28 15:24 | NUR ---
DIETARY CALLED FOR TRAY
--- NOTE | 2016-03-28 15:55 | NUR ---
PT GIVEN ASA BUT PT ASKING TO WAIT TO TAKE TOPROL. STATES SHE TAKES IT IN THE EVENING. GIVEN DINNER TRAY
--- NOTE | 2016-03-28 16:08 | Cons- Neurology ---
General Information and HPI Consulting Request Date of Consult: 03/28/16 Requested By: LUCI ALONSO,JACK Multani Reason for Consult: transient dysphasia and blurry vision Source of Information: patient, old records Exam Limitations: no limitations History of Present Illness: 55/F noted blurring of vision and inability to produce words about 6 AM today. She had been OK earlier. Understood others, no associated weakness or sensory symtoms, no headache. duration about 2 hours. One prior similar episode in Feb just before [place] recently changed to Crestor low dose due to malaise on atorvastatin. Has been on ASA for several years. Allergies/Medications Allergies: Coded Allergies: iodine (Severe, ANAPHYLAXIS 03/28/16) shellfish derived (Intermediate, ? D/T IODINE ALLERGY 03/28/16) Uncoded Allergies: OPIATES (Severe, SEVERE ABD PAIN 03/28/16) Home Med List: AMLODIPINE BES/OLMESARTAN MED (Sahil 5-40 MG Tablet) 1 TAB TAB 1 TAB PO DAILY HEART (Reported) Aspirin (Children's Aspirin) 81 MG CTB 1 TAB PO DAILY HEART HEALTH (Reported) Metoprolol Succinate (Metoprolol Succinate XL) [address] 1 TAB PO DAILY HEART (Reported) Rosuvastatin Calcium (Crestor) 10 MG TABLET 1 TAB PO DAILY CHOLESTEROL ( Reported) Current Medications: Current Medications Sig/Reggie Start time Last Medication Dose Route Stop Time Status Admin Amlodipine Besylate 5 MG DAILY 03/29 1000 AC PO Aspirin 0 .STK-MED ONE 03/28 1455 DC PO Aspirin 81 MG DAILY 03/28 1403 AC 03/28 PO 1554 Enoxaparin Sodium 40 MG DAILY 03/29 1000 AC SC Losartan Potassium 100 MG DAILY 03/29 1000 AC PO Metoprolol Succinate 50 MG DAILY 03/28 1403 AC PO Non-Formulary 0 SEE ADMIN CRITERIA 03/28 1445 CAN Medication ANY Rosuvastatin Calcium 10 MG DAILY@1700 03/28 1700 AC PO Review of Systems Review of Systems: a complete medical ROS revealed no pertinent positive complaints except as in HPI. negatives are absence of palpitations, chest pain. 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 Other Medical Hx: porphyria Surgical History Surgical History: hysterectomy, cardiac catheterization Family History Relations & Conditions If Any: MOTHER FH: HTN (hypertension) FH: myocardial infarction FATHER Valvular heart disease AUNT FHx: esophageal cancer Psychosocial History Services at Home: None Smoking Status: Never Smoked ETOH Use: denies use Illicit Drug Use: denies illicit drug use Employment History Employment: Employed Exam & Diagnostic Data Vital Signs and I&O Vital Signs Date Time Temp Pulse Resp B/P Pulse O2 O2 Flow FiO2 Ox Delivery Rate 03/28 1503 98.2 66 16 110/64 98 Room Air 03/28 1220 64 16 135/73 97 03/28 1024 68 20 146/74 99 Nasal 2.0L Cannula 03/28 0944 99 Nasal 2.0L Cannula 03/28 0943 82 162/82 03/28 0936 98.3 80 18 159/78 99 Intake & Output 03/28 1600 03/28 0800 03/28 0000 Intake Total Output Total Balance Patient 170 lb Weight Physical Exam: appears generally well no bruits, murmur, pulses intact alert, oriented no language errors, no dysnomia recall and general fund of [facility] VFF fundi normal EOMI, P4ERRL V and VII normal IX,XI XII normal motor normal tone and power, no drift DTRs symmetric, normal, no pathological reflexes sensation normal coordination normal gait not tested Last 48 Hours of Lab Results: Laboratory Tests 03/28 03/28 1011 0954 Chemistry Sodium (137 - 145 mmol/L) 142 Potassium (3.5 - 5.1 mmol/L) 4.3 Chloride (98 - 107 mmol/L) 101 Carbon Dioxide (22 - 30 mmol/L) 27 Anion Gap (5 - 16) 15 BUN (7 - 17 mg/dL) 19 H Creatinine (0.5 - 1.0 mg/dL) 0.8 Estimated GFR (>60 ml/min) > 60 BUN/Creatinine Ratio (7 - 25 %) 23.8 Glucose (65 - 99 mg/dL) 100 H Hemoglobin A1c Pending Calcium (8.4 - 10.2 mg/dL) 9.7 Total Bilirubin (0.2 - 1.3 mg/dL) 1.0 Direct Bilirubin (< 0.4 mg/dL) 0.4 AST (14 - 36 U/L) 28 ALT (9 - 52 U/L) 48 Alkaline Phosphatase (<127 U/L) 65 Troponin I (< 0.11 ng/ml) < 0.01 C-Reactive Prot, Quant (<1.0 mg/dL) < 0.5 Total Protein (6.3 - 8.2 g/dL) 7.6 Albumin (3.5 - 5.0 g/dL) 4.9 Globulin (1.9 - 4.2 gm/dL) 2.7 Albumin/Globulin Ratio (1.1 - 2.2 %) 1.8 Triglycerides (<150 mg/dL) 113 Cholesterol (<200 MG/DL) 150 LDL Cholesterol, Calc (65 - 129 mg/dL) 69 HDL Cholesterol (40 - 60 mg/dL) 59 Cholesterol/HDL Ratio (0.00 - 4.23 %) 2.5 TSH (0.270 - 4.200 uIU/mL) 1.390 Free T4 (0.64 - 1.79 ng/dL) 0.86 Thyroxine (T4) (4.5 - 10.9 ug/dL) 7.3 Total T3 (0.97 - 1.69 ng/mL) 1.42 Coagulation PT (9.4 - 12.5 SEC) 10.1 INR (0.90 - 1.19) 0.96 APTT (25 - 37 SEC) 30 Hematology CBC w Diff NO MAN DIFF REQ WBC (4.8 - 10.8 /CUMM) 5.6 RBC (4.20 - 5.40 /CUMM) 4.19 L Hgb (12.0 - 16.0 G/DL) 12.7 Hct (37 - 47 %) 37.8 MCV (81.0 - 99.0 FL) 90.3 MCH (27.0 - 31.0 PG) 30.3 RDW (11.5 - 14.5 %) 14.4 Plt Count (130 - 400 /CUMM) 285 MPV (7.4 - 10.4 FL) 7.5 Gran % (42.2 - 75.2 %) 52.4 Lymphocytes % (20.5 - 51.1 %) 38.4 Monocytes % (1.7 - 9.3 %) 7.1 Eosinophils % (0 - 5 %) 1.8 Basophils % (0.0 - 2.0 %) 0.3 Absolute Granulocytes (1.4 - 6.5 /CUMM) 2.9 Absolute Lymphocytes (1.2 - 3.4 /CUMM) 2.2 Absolute Monocytes (0.10 - 0.60 /CUMM) 0.4 Absolute Eosinophils (0.0 - 0.7 /CUMM) 0.1 Absolute Basophils (0.0 - 0.2 /CUMM) 0 PUBS MCHC (33.0 - 37.0 G/DL) 33.5 Imaging/Other Studies: MRI: No diffusion abnormalities are identified to suggest an acute or subacute infarct. No mass effect or midline shift is seen. The ventricles are normal in size. There are scattered areas of increased T2 and FLAIR signal in the periventricular and subcortical white matter as well as within the right basal ganglia. Dopplers: 1. RIGHT: Minimal, nonhemodynamically significant stenosis of the proximal right internal carotid artery corresponding to a 0-49% stenosis by velocity criteria. 2. LEFT: Minimal, nonhemodynamically significant stenosis of the proximal left internal carotid artery corresponding to a 0-49% stenosis by velocity criteria. 3. No evidence for hemodynamically significant stenosis in the external carotid arteries. \CT: There is no evidence of acute intracranial hemorrhage or territorial infarction. No abnormal mass effect or midline shift is seen. Trejo to white matter differentiation is well preserved. No extra-axial fluid collections are identified. The ventricles are normal in size. Chronic hypoattenuating foci in the bilateral basal ganglia may reflect chronic lacunar infarcts or prominent perivascular spaces. The osseous structures and soft tissues are normal. The mastoid air cells and visualized portions of the paranasal sinuses are well aerated. IMPRESSION: No acute intracranial pathology. Assessment/Plan Assessment: TIA left posterior MCA pattern, microvascular disease seen on CT and MRI. No indication of vasculitis and no hx of migraine, probable similar TIA in February, both occurred on ASA Recommendations: telemetry for 24 hours f/u for longer monitoring with Dr Eliud PEREZ, ambulate observe BP, OK now, was high on presentation change ASA to Plavix 75 mg QD increase crestor dose to 20 mg and see if tolerated Consult Acknowledgment - Thank you for your consult request.
--- NOTE | 2016-03-28 16:35 | NUR ---
PT MOVED TO ROOM 18
--- NOTE | 2016-03-28 17:44 | NUR ---
NURSING NOTE MEDICATED WITH PLAVIX 75MG. PT IS NOW RELAXING AND TAKING A NAP.
--- NOTE | 2016-03-28 18:42 | NUR ---
NURSING NOTE PT ARRIVED TO BED 18 AN HOUR AGO. I DELIVERED HER MEDS ACCORDING TO PROTICOL. SHE IS RESTING IN BED, A&OX3, ON 2L NC, SKIN IS CDI. WORKING ON TITRATING OFF 02 PER PROTICOL.
--- NOTE | 2016-03-28 22:13 | NUR ---
2200 TROP DRAWN AND SENT TO LAB. WELL EXTRA TUBES LAV BLUE DEAN PINK TUBES COLLECTED
[2016-03-28 22:18] VITALS: BP 136/62
--- NOTE | 2016-03-28 22:50 | NUR ---
PT IS ALERT AND ORIENTED X 3. SCORING 0 ON STROKE SCALE. NO C/O PAIN. VSS.
--- NOTE | 2016-03-28 23:04 | NUR ---
2200 TROPONIN NEGATIVE MD NAZARIO AWARE.
--- NOTE | 2016-03-29 00:03 | NUR ---
SPOKE WITH . PT CANNOT BE TELE WITH Q 1 HR NIH SCALES FOR TELE. WILL CHANGE ORDER.
--- NOTE | 2016-03-29 03:53 | NUR ---
SLEEPING WELL THIS SHIFT, STROKE SCALE 0, SINCE ARRIVAL. NO CO. WILL CONT TO MONITOR.
[2016-03-29 06:31] VITALS: BP 116/63
--- NOTE | 2016-03-29 07:14 | PN- Housestaff ---
Subjective Follow-up For: 1. TIA 2. Ruled out ACS 3. Migraine versus vasculitis? 4. Hypertension 5. Hyperlipidemia 6. 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 She is alert, awake and oriented to time place and person. No acute events noticed overnight. She denied any blurred vision, dizziness or lightheadedness, headache this morning. She denied any chest pain, racing of heart, shortness of breath, sweating or diaphoresis. She denied any weakness, sensory changes, gait changes, vision changes, swallowing difficulty. Vitals were stable afebrile, heart rate is 64, respiratory rate 20, blood pressure 116/63, saturating at 98% on room air. She slept well and she feels much better to go home today. Review of Systems Constitutional: Denies: see HPI. Objective Last 24 Hrs of Vital Signs/I&O Vital Signs Date Time Temp Pulse Resp B/P Pulse O2 O2 Flow FiO2 Ox Delivery Rate 03/29 1116 64 116/63 03/29 1115 64 116/63 03/29 0631 64 20 116/63 98 Room Air 03/28 2218 98.0 75 20 136/62 97 Room Air 03/28 2003 98.3 68 18 120/65 98 Room Air 03/28 1644 66 110/64 03/28 1600 91 Nasal 2.0L Cannula 03/28 1503 98.2 66 16 110/64 98 Room Air 03/28 1220 64 16 135/73 97 Intake & Output 03/29 1600 03/29 0800 03/29 0000 Intake Total 240 Output Total Balance 240 Intake, Oral 240 Patient 77.111 kg Weight Physical Exam General Appearance: Alert, Oriented X3, Cooperative, No Acute Distress Skin: No Rashes, No Breakdown HEENT: Atraumatic, Mucous Membr. moist/pink Neck: Supple, No JVD Lymphatic: Cervical nl Cardiovascular: Normal S1, Normal S2, No Murmurs Lungs: Normal Air Movement Abdomen: Normal Bowel Sounds, Soft, No Tenderness Neurological: Normal Speech, Strength at 5/5 X4 Ext, Normal Tone, Sensation Intact, Cranial Nerves 3-12 NL Extremities: No Clubbing, No Cyanosis, No Edema Vascular: Normal Pulses Current Medications: Current Medications Sig/Reggie Start time Last Medication Dose Route Stop Time Status Admin Acetaminophen 325 MG Q8P PRN 03/28 2015 AC PO Amlodipine Besylate 5 MG DAILY 03/29 1000 AC 03/29 PO 1116 Aspirin 0 .STK-MED ONE 03/28 1455 DC PO Aspirin 81 MG DAILY 03/28 1403 DC 03/28 PO 1554 Clopidogrel Bisulfate 75 MG DAILY 03/28 1733 AC 03/29 PO 1116 Enoxaparin Sodium 40 MG DAILY 03/29 1000 AC SC Losartan Potassium 100 MG DAILY 03/29 1000 AC 03/29 PO 1115 Metoprolol Succinate 50 MG DAILY 03/28 1403 AC 03/29 PO 1116 Non-Formulary 0 SEE ADMIN CRITERIA 03/28 1445 CAN Medication ANY Rosuvastatin Calcium 20 MG DAILY@1700 03/29 1700 AC PO Rosuvastatin Calcium 10 MG DAILY@1700 03/28 1700 DC PO Last 24 Hrs of Lab/Jhonatan Results Last 24 Hrs of Labs/Mics: Laboratory Tests 03/28/16 2200: Troponin I < 0.01 03/28/16 1620: Troponin I < 0.01, ESR Westergren 22 H Assessment/Plan Assessment: This is a 55-year-old female with past medical history significant for nonobstructive coronary artery disease, hypertension, hyperlipidemia, anxiety, prior history of TIA, NSTEMI status post cardiac catheterization, peptic ulcer disease, intermittent porphyria, acute cholecystitis status post laparoscopic cholecystectomy presented to the [facility] emergency department with chief complaint of blurry vision and slurred speech for couple of hours before coming to the hospital. Vitals on admission afebrile, heart rate 68, respiratory rate 20, blood pressure 146/74, saturating at 99% on 2 L oxygen. Pertinent labs on admission CBC normal BEP normal First set of troponins were negative. EKG normal sinus rhythm with no acute ST-T wave changes. Head CT was normal MRI head- 1. There are no acute bleeds or infarcts. 2. There are no masses or areas of abnormal enhancement 3. There are scattered foci of increased T2 and FLAIR signal in the white matter, which are nonspecific and may be consistent with sequelae of migraine, vasculitis or mild/early microvascular ischemic change. Problem list 1. TIA 2. Ruled out ACS 3. Migraine versus vasculitis? 4. Hypertension 5. Hyperlipidemia 6. Non-obstructive coronary artery disease TIA Patient presented with sudden onset of blurred vision and slurred speech - Which lasted for few hours. Blood pressure was running high at the same time and her manager therapy dr. russo advised her to go to the emergency room. Also reported racing of heart at the same time. She denied any focal neurologic deficits by the time she came to hospital. Serial EKG and troponins were negative Head CT was normal Brain MRI was normal except for scattered foci of increased T2 and FLAIR signal in the white matter, which are nonspecific and may be consistent with sequelae of migraine, vasculitis or mild/early microvascular ischemic change. * Admitted to telemetry floor for 24-hour observation * Monitor vitals every shift * Maintain oxygen saturation above 92% * Frequent neuro checks * nih stroke scale * Neurology was consulted. * Discontinued aspirin home dose 81 mg * Started on Plavix 75 mg daily * serial EKG and troponins negative * ABCD2 on admission-blood pressure greater than 140/90, speech disturbances, duration greater than 60 minutes-score of 4-moderate risk of subsequent stroke 4.1%. * Ruled out ACS * Carotid Doppler ultrasound neck- normal * Echocardiogram- pending * Cardiology consulted * Passed bedside swallow evaluation * PTOT * Speech therapy * Patient needs outpatient workup for vasculitis. * Follow neurology recommendations Hypertension * amlodipine- OLMESARTAN daily for blood pressure * Metoprolol 50 mg by mouth daily for blood pressure * Continue home medications. Hyperlipidemia * crestor dose increased to 20 mg for 10 mg. Nonobstructive coronary artery disease Patient had non-STEMI in 2014. Status post catheterization-nonobstructive coronary artery disease. Follows Dr. Nguyễn manager therapy as an outpatient. * Echo in 2013 showed ejection fraction greater than 55% * Negative stress echo for ischemia in 2016 * Continue aspirin 162 mg * Ink Blender was consulted * Ruled out acute coronary syndrome * Serial troponins and EKGs negative. patient is full code DVT prophylaxis subcutaneous Lovenox Heart healthy diet Problem List: 1. TIA (transient ischemic attack) Pain Ratin Pain Location: NONE Pain Goal: Remain pain free Pain Plan: tylinol Tomorrow's Labs & Rationales: none
[2016-03-29] MEDS ORDERED: CRESTOR10 M1 PO (08:52)
[2016-03-29] MEDS ORDERED: PLAVIX75 M1 PO (08:52)
--- NOTE | 2016-03-29 08:56 | Patient Discharge Instructions ---
Discharge Instructions General Discharge Information You were seen/treated for: Transient ischemic attack You had these procedures: None Watch for these problems: Blurred vision Dizziness or lightheadedness Sensory changes Weakness Vision changes Gait changes Special Instructions: Follow-up with primary care doctor in 1 week Follow-up With your injection wax molder in 1week. And follow up with the blood culture results and echo results with your injection wax molder Follow-up with neurologist, Dr. Neal Zapata in 1 week Aspirin was discontinued Started Plavix 75 mg daily Crestor dose increased to 20 mg from 10 mg Diet Recommended Diet: Heart Healthy Activity Full Activity/No Limits: Yes Acute Coronary Syndrome Inclusion Criteria At DC or during hospital stay patient has or had the following: ACS DIAGNOSIS No Discharge Core Measures Meds if any: Prescribed or Continued at Discharge Meds if any: NOT Prescribed or Continued at Discharge Congestive Heart Failure Inclusion Criteria At DC or during hospital stay patient has or had the following: CHF DIAGNOSIS No Discharge Core Measures Meds if any: Prescribed or Continued at Discharge Meds if any: NOT Prescribed or Continued at Discharge Cerebrovascular accident Inclusion Criteria At DC or during hospital stay patient has or had the following: CVA/TIA Diagnosis Yes Discharge Core Measures Meds if any: Prescribed or Continued at Discharge Antithrombotic Yes Statin (required if LDL =>70) Yes Anticoagulant No Meds if any: NOT Prescribed or Continued at Discharge Venous thromboembolism Inclusion Criteria VTE Diagnosis No VTE Type NONE VTE Confirmed by (Test) NONE Discharge Core Measures - Per Current guidelines, there needs to be overlap - treatment for the first 5 days of Warfarin therapy. - If discharged on Warfarin prior to 5 days of - overlap therapy, the patient will need to be - assessed for post discharge needs including - *Post discharge parental anticoagulation - *Warfarin and/or parental anticoagulation education - *Follow up date to check INR post discharge At least 5 days overlap therapy as Inpatient No Meds if any: Prescribed or Continued at Discharge Note: Overlap Therapy is Warfarin and Anticoagulant Meds if any: NOT Prescribed or Continued at Discharge
--- NOTE | 2016-03-29 09:06 | NUR ---
PT and OT at bedside for eval.
--- NOTE | 2016-03-29 09:10 | NUR ---
PT BEING EVALUATED BY PT AND OT. PT AMBULATING WITHOUT ANY ISSUES AT THIS TIME. PT STATES SHE FEELS WELL AND HAS NO PAIN, VSS. PT WISHING TO BE DISCHARGED HOME AT THIS TIME, AWARE.
[2016-03-29 11:16] VITALS: BP 116/63
--- NOTE | 2016-03-29 12:48 | PN- Pulmonary ---
Subjective HPI/Critical Care Issues: Doing well afebrile vss Chest clear Objective Current Medications: Current Medications Sig/Reggie Start time Last Medication Dose Route Stop Time Status Admin Acetaminophen 325 MG Q8P PRN 03/28 2014 AC PO Amlodipine Besylate 5 MG DAILY 03/29 1000 AC 03/29 PO 1116 Aspirin 0 .STK-MED ONE 03/28 1455 DC PO Aspirin 81 MG DAILY 03/28 1403 DC 03/28 PO 1554 Clopidogrel Bisulfate 75 MG DAILY 03/28 1733 AC 03/29 PO 1116 Enoxaparin Sodium 40 MG DAILY 03/29 1000 AC SC Losartan Potassium 100 MG DAILY 03/29 1000 AC 03/29 PO 1115 Metoprolol Succinate 50 MG DAILY 03/28 1403 AC 03/29 PO 1116 Non-Formulary 0 SEE ADMIN CRITERIA 03/28 1445 CAN Medication ANY Rosuvastatin Calcium 20 MG DAILY@1700 03/29 1700 AC PO Rosuvastatin Calcium 10 MG DAILY@1700 03/28 1700 DC PO Vital Signs & I&O Last 24 Hrs of Vitals and I&O: Vital Signs Date Time Temp Pulse Resp B/P Pulse O2 O2 Flow FiO2 Ox Delivery Rate 03/29 1205 Room Air Room Air 03/29 1116 64 116/63 03/29 1115 64 116/63 03/29 0631 64 20 116/63 98 Room Air 03/28 2218 98.0 75 20 136/62 97 Room Air 03/28 2003 98.3 68 18 120/65 98 Room Air 03/28 1644 66 110/64 03/28 1600 91 Nasal 2.0L Cannula 03/28 1503 98.2 66 16 110/64 98 Room Air Intake & Output 03/29 1600 03/29 0800 03/29 0000 Intake Total 240 Output Total Balance 240 Intake, Oral 240 Patient 170 lb Weight Impression/Plan Impression/Plan Impression/Plan: Pt with history of non obstructive cad, htn, hld, hisotry of previous sanjana, previous history of du ulcer, previous intermittent porphyria now with * Episodes of brief bilateral blurry vision with mild disorientation with slurring of words with spontaneous resolution. Diff dx arrythmia vs migrane vs tia (less likely), Unlikely vasculitis (mri report) * HTN stable * HLD * Nonobstructive cad * Previous reported history of intermittent porphyria no evidence of recurrence in the past 10 yrs * Previous pud REC Prob TIA Appears stable OK to dc with plavix and crestor 20mg
--- NOTE | 2016-03-29 14:55 | Cons- Cardiology ---
General Information and HPI Consulting Request Date of Consult: 03/29/16 Requested By: LUCI ALONSO,JACK Multani Reason for Consult: TIA Source of Information: patient, old records History of Present Illness: This is a very pleasant 55-year-old female with a past medical history of nonobstructive coronary artery disease by prior catheterization, hypertension, hyperlipidemia, aortic insufficiency, and intermittent porphyria who presented to [facility] with a chief complaint of visual changes and difficulty speaking. She initially had an episode at the end of February where her family noticed that when she was speaking she was not making sense. Then on the day of admission she was noticing similar symptoms and also blurring of vision and was having difficulty doing her work. She denied associated chest pain, palpitations, syncope, fevers, or chills. She does note that she recently had a tooth infection but that occurred after the initial episode in February. Denies excessive fatigue, diaphoresis, seizure, headache, or diarrhea. She at one point was having side effects from Lipitor which was then changed to Crestor. On my interview with the patient her symptoms have now resolved. Allergies/Medications Allergies: Coded Allergies: iodine (Severe, ANAPHYLAXIS 03/28/16) shellfish derived (Intermediate, ? D/T IODINE ALLERGY 03/28/16) Uncoded Allergies: OPIATES (Severe, SEVERE ABD PAIN 03/28/16) Home Med List: AMLODIPINE BES/OLMESARTAN MED (Sahil 5-40 MG Tablet) 1 TAB TAB 1 TAB PO DAILY HEART (Reported) Aspirin (Children's Aspirin) 81 MG CTB 1 TAB PO DAILY HEART HEALTH (Reported) Clopidogrel Bisulfate (Plavix) 75 MG TABLET 1 TAB PO DAILY heart health Metoprolol Succinate (Metoprolol Succinate XL) [address] 1 TAB PO DAILY HEART (Reported) Rosuvastatin Calcium (Crestor) 10 MG TABLET 1 TAB PO DAILY CHOLESTEROL ( Reported) Rosuvastatin Calcium (Crestor) 10 MG TABLET 2 TAB PO DAILY@1700 heart health Current Medications: Current Medications Sig/Reggie Start time Last Medication Dose Route Stop Time Status Admin Acetaminophen 325 MG Q8P PRN 03/28 2014 AC PO Amlodipine Besylate 5 MG DAILY 03/29 1000 AC 03/29 PO 1116 Aspirin 0 .STK-MED ONE 03/28 1455 DC PO Aspirin 81 MG DAILY 03/28 1403 DC 03/28 PO 1554 Clopidogrel Bisulfate 75 MG DAILY 03/28 1733 AC 03/29 PO 1116 Enoxaparin Sodium 40 MG DAILY 03/29 1000 AC SC Losartan Potassium 100 MG DAILY 03/29 1000 AC 03/29 PO 1115 Metoprolol Succinate 50 MG DAILY 03/28 1403 AC 03/29 PO 1116 Non-Formulary 0 SEE ADMIN CRITERIA 03/28 1445 CAN Medication ANY Rosuvastatin Calcium 20 MG DAILY@1700 03/29 1700 AC PO Rosuvastatin Calcium 10 MG DAILY@1700 03/28 1700 DC PO Review of Systems Review of Systems: Review of systems as per HPI. The remainder of a 10 point review of systems was reviewed and was otherwise negative. Past History Travel History Traveled to [place] past 21 day No Medical History Blood Transfusion Hx: No Neurological: NONE EENT: NONE Cardiovascular: hypertension, myocardial infarction Respiratory: NONE Gastrointestinal: GERD, peptic ulcer disease Hepatic: NONE Renal: NONE Musculoskeletal: NONE Psychiatric: NONE Endocrine: NONE Blood Disorders: NONE Cancer(s): NONE STRATEGIC PLANNER/Reproductive: NONE Other Medical Hx: porphyria Surgical History Surgical History: hysterectomy, cardiac catheterization Family History Relations & Conditions If Any: MOTHER FH: HTN (hypertension) FH: myocardial infarction FATHER Valvular heart disease AUNT FHx: esophageal cancer Psychosocial History Services at Home: None Smoking Status: Never Smoked ETOH Use: denies use Illicit Drug Use: denies illicit drug use Employment History Employment: Employed Exam & Diagnostic Data Vital Signs and I&O Vital Signs Date Time Temp Pulse Resp B/P Pulse O2 O2 Flow FiO2 Ox Delivery Rate 03/29 1205 Room Air Room Air 03/29 1116 64 116/63 03/29 1115 64 116/63 03/29 0631 64 20 116/63 98 Room Air 03/28 2218 98.0 75 20 136/62 97 Room Air 03/28 2002 98.3 68 18 120/65 98 Room Air 03/28 1644 66 110/64 03/28 1600 91 Nasal 2.0L Cannula 03/28 1503 98.2 66 16 110/64 98 Room Air Intake & Output 03/29 1600 03/29 0800 03/29 0000 03/28 1600 03/28 0803/28 0000 Intake Total 240 1140 Output Total 825 Balance 240 315 Intake, Oral 240 1140 Number 0 Bowel Movements Output, Urine 825 Patient 170 lb 170 lb Weight Physical Exam: General: no apparent distress. Alert. Eyes: No obvious scleral icterus. HEENT: No jugular venous distention or abnormal jugular venous pulsations. Cardiovascular: Normal intensity S1/S2. PMI not grossly displaced. Respiratory: Lungs clear to auscultation bilaterally. Abdomen: Soft, nontender with no guarding or rebound tenderness. Musculoskeletal: No clubbing or cyanosis noted Skin: No obvious rashes or ulcerations. Neurologic: No gross focal deficits noted. Lymph: No gross lymphadenopathy. Labs/Jhonatan Results: Laboratory Tests 03/28 03/28 03/28 03/28 2200 1620 1011 0954 Chemistry Sodium (137 - 145 mmol/L) 142 Potassium (3.5 - 5.1 mmol/L) 4.3 Chloride (98 - 107 mmol/L) 101 Carbon Dioxide (22 - 30 mmol/L) 27 Anion Gap (5 - 16) 15 BUN (7 - 17 mg/dL) 19 H Creatinine (0.5 - 1.0 mg/dL) 0.8 Estimated GFR (>60 ml/min) > 60 BUN/Creatinine Ratio (7 - 25 %) 23.8 Glucose (65 - 99 mg/dL) 100 H Hemoglobin A1c (<5.7) 5.8 H Calcium (8.4 - 10.2 mg/dL) 9.7 Total Bilirubin (0.2 - 1.3 mg/dL) 1.0 Direct Bilirubin (< 0.4 mg/dL) 0.4 AST (14 - 36 U/L) 28 ALT (9 - 52 U/L) 48 Alkaline Phosphatase (<127 U/L) 65 Troponin I (< 0.11 ng/ml) < 0.01 < 0.01 < 0.01 C-Reactive Prot, Quant (<1.0 mg/dL) < 0.5 Total Protein (6.3 - 8.2 g/dL) 7.6 Albumin (3.5 - 5.0 g/dL) 4.9 Globulin (1.9 - 4.2 gm/dL) 2.7 Albumin/Globulin Ratio (1.1 - 2.2 %) 1.8 Triglycerides (<150 mg/dL) 113 Cholesterol (<200 MG/DL) 150 LDL Cholesterol, Calc (65 - 129 mg/dL) 69 HDL Cholesterol (40 - 60 mg/dL) 59 Cholesterol/HDL Ratio (0.00 - 4.23 %) 2.5 TSH (0.270 - 4.200 uIU/mL) 1.390 Free T4 (0.64 - 1.79 ng/dL) 0.86 Thyroxine (T4) (4.5 - 10.9 ug/dL) 7.3 Total T3 (0.97 - 1.69 ng/mL) 1.42 Coagulation PT (9.4 - 12.5 SEC) 10.1 INR (0.90 - 1.19) 0.96 APTT (25 - 37 SEC) 30 Hematology CBC w Diff NO MAN DIFF REQ WBC (4.8 - 10.8 /CUMM) 5.6 RBC (4.20 - 5.40 /CUMM) 4.19 L Hgb (12.0 - 16.0 G/DL) 12.7 Hct (37 - 47 %) 37.8 MCV (81.0 - 99.0 FL) 90.3 MCH (27.0 - 31.0 PG) 30.3 RDW (11.5 - 14.5 %) 14.4 Plt Count (130 - 400 /CUMM) 285 MPV (7.4 - 10.4 FL) 7.5 Gran % (42.2 - 75.2 %) 52.4 Lymphocytes % (20.5 - 51.1 %) 38.4 Monocytes % (1.7 - 9.3 %) 7.1 Eosinophils % (0 - 5 %) 1.8 Basophils % (0.0 - 2.0 %) 0.3 Absolute Granulocytes (1.4 - 6.5 /CUMM) 2.9 Absolute Lymphocytes (1.2 - 3.4 /CUMM) 2.2 Absolute Monocytes (0.10 - 0.60 /CUMM) 0.4 Absolute Eosinophils (0.0 - 0.7 /CUMM) 0.1 Absolute Basophils (0.0 - 0.2 /CUMM) 0 PUBS MCHC (33.0 - 37.0 G/DL) 33.5 ESR Westergren (0 - 20 MM) 22 H Diagnostic Data EKG Results Twelve-lead ECG tracing was personally reviewed and shows sinus rhythm at 64 bpm Other Results Carotid ultrasound 1. RIGHT: Minimal, nonhemodynamically significant stenosis of the proximal right internal carotid artery corresponding to a 0-49% stenosis by velocity criteria. 2. LEFT: Minimal, nonhemodynamically significant stenosis of the proximal left internal carotid artery corresponding to a 0-49% stenosis by velocity criteria. 3. No evidence for hemodynamically significant stenosis in the external carotid arteries. MRI IMPRESSION: 1. There are no acute bleeds or infarcts. 2. There are no masses or areas of abnormal enhancement. 3. There are scattered foci of increased T2 and FLAIR signal in the white matter, which are nonspecific and may be consistent with sequelae of migraine, vasculitis or mild/early microvascular ischemic change. Assessment/Plan Assessment/Plan 1. Recurrent TIA while on aspirin therapy 2. History of nonobstructive coronary artery disease by prior cardiac catheterization 3. Hypertension 4. Hyperlipidemia 5. History of intermittent porphyria Patient with evidence of 2 recent TIAs while on aspirin therapy. Has been evaluated by neurology and switched to Plavix. Agree with the increased Crestor dose as well. Blood pressure appears well-controlled. No evidence of significant hemodynamically obstructive carotid artery disease. No evidence of obvious endocarditis but will obtain routine set of screening blood cultures. We will obtain an echocardiogram. She will likely need aggressive screening for atrial fibrillation in the future possibly with outpatient Holter monitor followed by implantable loop recorder. She will return immediately to the hospital in the future with any new or recurrent symptoms. Yang Chatman MD [facility] Consult Acknowledgment - Thank you for your consult request.
--- NOTE | 2016-03-29 16:26 | PN- Student ---
Subjective Subjective: Patient is a 55 year old woman with past history of TIA presenting to the ED for slurred speech and blurred vision. Patient examined at bedside this morning, appears comfortable in hospital gown eating breakfast. Patient had no overnight events. Patient in sinus rythm, regular rate. Patient denies any changes in vision, headache, numbness or tingling, and weakness. Objective Objective: Pt is on room air, BP 116/63, pulse 64, RR 20, temp 98 Assessment/Plan Assessment: Patient is a 55 year old female with PMH of TIA presenting for slurred speech and blurred vision. Plan: Patient being discharged today. Patient was AVSS over night and did not have any complaints. Patient is being discharged on Plavix and advised to continue Rosuvastatin for HDL. Current Medications Sig/Reggie Start time Last Medication Dose Stop Time Status Admin Acetaminophen 325 MG Q8P PRN 03/28 2014 AC (Tylenol) Enoxaparin Sodium 40 MG DAILY 03/29 1000 AC (Lovenox) Rosuvastatin Calcium 20 MG DAILY@1700 03/29 1700 AC (Crestor)
--- NOTE | 2016-03-29 16:27 | NUR ---
ECHO COMPLETED. PT DISCHARGED HOME. PT AWARE SHE NEEDS TO FOLLOW UP WITH PCP, RESIDUE FURNACE OPERATOR AND NEUROLOGIST NEXT WEEK. PT INSTRUCTED TO FOLLOW UP WITH RESIDUE FURNACE OPERATOR FOR RESULTS OF ECHO AND BLOOD CULTURES. IV REMOVED. PT AMBUALTED OUT OF ED WITHOUT ASSIST
--- NOTE | 2016-03-29 23:20 | ECHOCARDIOGRAM REPORT ---
BLAKE GILLESPIE Age: 55 : 1960 Gender: F Exam Date: 03/29/2016 15:25 Exam Location: [facility] Ht (in): 65 Wt (lb): 170 BSA: 1.90 BP: 116 / 63 Ordering Physician: QUENTIN CASTILLO, Referring Physician: QUENTIN CASTILLO, Technologist: ALVA FONTENOT [facility] RD[facility] Room Number: ERHI Indications: TIA Rhythm: Sinus Technical Quality: Fair FINDINGS Left Ventricle Normal global left ventricular size, wall thickness, systolic function with no obvious regional wall motion abnormalities. Left ventricular ejection fraction is estimated at > 55 %. Abnormal relaxation filling pattern of the left ventricle for age (stage 1 diastolic dysfunction). Right Ventricle Normal right ventricular size and function. Right Atrium Normal right atrial size. Left Atrium Left atrial size at the upper limits of normal. Mitral Valve Structurally normal mitral valve. No mitral stenosis. Trace to mild mitral regurgitation. Aortic Valve No aortic stenosis. Trileaflet aortic valve. Mild aortic sclerosis. Possible Lambl's excrescence. Mild aortic regurgitation. Tricuspid Valve Structurally normal tricuspid valve. Trace tricuspid regurgitation. Unable to estimate the right ventricular systolic pressure. Pulmonic Valve Pulmonic valve not well visualized, grossly normal. Pericardium No pericardial effusion. Great Vessels Normal size aortic root. CONCLUSIONS Normal global left ventricular size, wall thickness, systolic function with no obvious regional wall motion abnormalities. Left ventricular ejection fraction is estimated at > 55 %. Abnormal relaxation filling pattern of the left ventricle for age (stage 1 diastolic dysfunction). Left atrial size at the upper limits of normal. Mild aortic sclerosis. Possible Lambl's excrescence. Mild aortic regurgitation. Unable to estimate the right ventricular systolic pressure. Stefan Chatman M.D. (Electronically Signed) Final Date: 29 March 2016 23:19 MEASUREMENTS (Male / Female) Normal Values 2D ECHO LV Diastolic Diameter PLAX 4.1 cm 4.2 - 5.9 / 3.9 - 5.3 cm LV Systolic Diameter PLAX 2.7 cm 2.1 - 4.0 cm LV Fractional Shortening PLAX 34.1 % 25 - 46 % LV Ejection Fraction 2D Teich 63.6 % IVS Diastolic Thickness 0.9 cm LVPW Diastolic Thickness 0.9 cm LV Relative Wall Thickness 0.4 LVOT Diameter 2.1 cm Aortic Root Diameter 3.5 cm LA Volume 42.0 cm 18 - 58 / 22 - 52 cm Ascending Aorta Diameter 3.6 cm M-MODE LA Systolic Diameter MM 3.2 cm 3.0 - 4.0 / 2.7 - 3.8 cm DOPPLER AV Peak Velocity 122.0 cm/s AV Peak Gradient 6.0 mmHg AI Deceleration [place] 91.8 cm/s AI Peak Velocity 351.0 cm/s AI Pressure Half Time 1119.0 ms AI Peak Gradient 49.3 mmHg LVOT Peak Velocity 116.0 cm/s LVOT Peak Gradient 5.4 mmHg AV Area Cont Eq pk 3.3 cm Mitral E Point Velocity 62.2 cm/s Mitral A Point Velocity 82.9 cm/s Mitral E to A Ratio 0.8 MV Deceleration Time 211.0 ms PV Peak Velocity 99.0 cm/s PV Peak Gradient 3.9 mmHg LV E' Lateral Velocity 9.1 cm/s Mitral E to LV E' Lateral Ratio 6.9 LV E' Septal Velocity 5.4 cm/s Mitral E to LV E' Septal Ratio 11.6
== END 2016-03-29 16:32 ==
LOC: ERH 09:34 → ERHI 12:49
PROVIDERS: Emergency Medicine; ADMIT Internal Medicine Pulmonary Disease
DX: G45.9 Transient cerebral ischemic attack, unspecified (principal); I25.10 Atherosclerotic heart disease of native coronary artery without angina pectoris; I10 Essential (primary) hypertension; E78.5 Hyperlipidemia, unspecified; I35.1 Nonrheumatic aortic (valve) insufficiency; Z86.73 Personal history of transient ischemic attack (TIA), and cerebral infarction without residual deficits
CPT/HCPCS: 70552; 70553; 87040; 92610-GN; 93005; 93010; 93306; 97001-GP; 97003-GO; 97161-GP; 97165-GO; A9579; G0378; G8996-GN; G8997-GN; G8998-GN; J1650; J3490